=== PATIENT | male | born 1955 | race Hispanic/Latino ===

== ENCOUNTER → 2020-12-04 | Outpatient (CLI) | payer BC | LOC: US 07:23 | PROVIDERS: ATTEND Internal Medicine Gastroenterology | DX: R10.13 Epigastric pain (principal) | CPT/HCPCS: 76700; 78264; A9541 ==

== ENCOUNTER 2022-12-22 08:05 | Emergency (ER) | payer BC ==
[~2022-12-22] VITALS: Ht 167.6 cm; Wt 108.9 kg
[2022-12-22] MEDS ORDERED: CELEBREX200 MG PO (08:33)
== END 2022-12-22 09:36 | disposition home or self-care (01) ==
LOC: ER 08:09
DX: M25.561 Pain in right knee (principal); E11.9 Type 2 diabetes mellitus without complications
CPT/HCPCS: 99283